=== PATIENT | female | born 1980 | race Caucasian/White ===

== ENCOUNTER 2021-02-01 08:27 | Emergency (ER) | payer OTHER, SELFPAY ==
[2021-02-01 08:38] VITALS: BP 111/56; PULSE 67; RESP 16; TEMP 37; O2SAT 100; BMI 20.1
--- NOTE | 2021-02-01 09:04 | ED_ITS ---
HPI - Back Pain/Injury General Chief Complaint: Back Pain/Injury Stated Complaint: BACK PAIN Time Seen by Provider: 02/01/21 09:03 History of Present Illness HPI Narrative: Patient is a 40-year-old female presents today with having back pain. It radiates down her left leg. It goes down to approximately the mid calf area. No bowel urinary incontinence. No focal weakness. Pain is worse with movement. Patient has some home. 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 Patient denies any trauma to the back. Never had similar pains in the past. No fever no chills. No flank pain no nausea no vomiting. No abdominal pain. Tolerated PO. Try some Aleve with moderate results. No coughing or congestion or upper respiratory symptoms. Related Data Previous Rx's Medication Instructions Recorded cyclobenzaprine 10 mg PO TID PRN 3 Days #14 tab 02/01/21 ibuprofen 400 mg PO Q6H PRN #20 tab 02/01/21 Allergies Allergy/AdvReac Type Severity Reaction Status Date / Time No Known Allergies Allergy Verified 02/01/21 09:08 Review of Systems Review of Systems: Constitutional: No Weight loss, No Fever, No Chills, No Night Sweats, No Fatigue, No Malaise ENT/Mouth: No Hearing loss, No Ear Pain, No Nasal Congestion, No Sinus Pain, No Hoarseness, No sore throat, No Rhinorrhea, No Swallowing Difficulty Eyes: No Eye Pain, No Swelling, No Redness, No Foreign Body, No Discharge, No Vision Changes Cardiovascular: No Chest Pain, No SOB, No Dyspnea on Exertion, No Orthopnea, No Edema, No Palpitations Respiratory: No Cough, No Sputum, No Wheezing, No Smoke Exposure, No Dyspnea Gastrointestinal: No Nausea, No Vomiting, No Diarrhea, No Constipation, No abdominal Pain, No Hematochezia, No Melena. Genitourinary: no irregular bleeding, No Dysuria, No Urinary Frequency, No Hematuria, No Urinary Incontinence, No Urgency, No Flank Pain, No Urinary Flow Changes, No Hesitancy Musculoskeletal: No joint pain, No Myalgias, No Joint Swelling Skin: No Skin Lesions, No rash Neuro: No Weakness, No Numbness, No Paresthesias, No Loss of Consciousness, No Dizziness, No Headache Psych: No Anxiety/Panic, No Depression, No SI/HI/AH/VH, No Social Issues, Heme/Lymph: No Bruising, No Bleeding,No Lymphadenopathy Endocrine: No Polyuria, No Polydipsia, No Temperature Intolerance [facility] Past Medical History Attestation statement: The following information was validated with the patient. Medical History Depression Irritable bowel syndrome (IBS) Surgical History H/O tubal ligation Social History Social History Patient Tobacco Use Status: Never used Tobacco Use of substances other than those prescribed or required for medical reasons: No Advance Directives: No Advance Directives Information Provided: No Patient : No Physical Exam Vital Signs: Vital Signs: Last Vital Signs Temp 98.6 F 02/01/21 08:38 Pulse 67 02/01/21 08:38 Resp 16 02/01/21 08:38 BP 111/56 L 02/01/21 08:38 Pulse Ox 100 02/01/21 08:38 Body Mass Index 20.1 Appearance: Alert. Oriented X3. No acute distress. Eyes: Pupils equal, round and reactive to light. ENT: Pharynx normal. Neck: Normal inspection. Neck supple. No lymph nodes noted. No crepitus CVS: Normal heart rate and rhythm. Pulses normal. Normal S1 and S2 Respiratory: No respiratory distress. Breath sounds normal. No Wheezing. No rales Abdomen: Soft and nontender. No rigidity. No distention. good BS x4 Examination of the back showed paraspinal tenderness on the left side treated there is no spinal tenderness elicited on palpation. There is good sensation bilateral lower extremities. Patient had good pulses in the foot. Pain on movement of the leg. Skin intact. Skin: Skin warm and dry. Normal skin color. Normal skin turgor. Extremities: No lower extremity edema. Neurovascular intact to all extremities. No Lacerations. No Rash Neuro: Oriented X 3. No motor deficit. No sensory deficit. Moving all extermities. No slurred speech MDM - Back Pain/Injury MDM Narrative Medical decision making narrative: No bowel urinary incontinence. No focal weakness. Good sensation both lower extremity. Pulses intact. Pain rating down to the left calf area consistent with having sciatica. Patient has no previous trauma. Has no history of IV drug use. Will discharge patient home with additional NSAIDs and muscle relaxant. Will give 1 dose of oxycodone for pain. In stable condition. Medical Records Attestation: I reviewed the patient's medical records. Lab Data Attestation: I reviewed the patient's lab results. Discharge Plan Discharge Clinical Impression: Sciatica Patient Disposition: Home, Self-Care Instructions: Sciatica (ED) Prescriptions: New ibuprofen 400 mg tablet 400 mg PO Q6H PRN (Reason: pain) Qty: 20 RF: 0 cyclobenzaprine 10 mg tablet 10 mg PO TID PRN (Reason: muscle spasm) 3 Days Qty: 14 RF: 0 Referrals: Luz Diaz MD [Primary Care Provider] - 2 days
== END 2021-02-01 09:49 | disposition home or self-care (01) ==
PROVIDERS: Emergency Provider Emergency Medicine Emergency Medical Services; PCP Internal Medicine
DX: M54.42 Lumbago with sciatica, left side (principal)
CPT/HCPCS: 99283

== ENCOUNTER 2021-03-20 14:00 | Outpatient (RCR) | payer OTHER, SELFPAY ==
--- NOTE | 2021-02-18 16:56 | MHC.PT.EP ---
[facility] [place] Office [place] Office [place] Office [address] [phone] F: [phone] F: [phone] F: [phone] F: [phone] Physical Therapy Plan of Care Date of Evaluation: Date of Surgery: N/A Diagnosis: Low back pain and sciatica Assessment: Pt is a 40yo F who presents with low back pain. Pt presents with current impairments in pain, strength, endurance, sensation, stability, and impaired body mechanics. She has anterior pelvic tilt, increased lordosis, TTP lumbar paraspinals, QL and glutes, and has increased mobility L1-L5. Signs and symptoms may be consistent with muscle imbalance and lumbar instability. She is limited functionally by pain with extension, prolonged supine, prolonged standing, and prolonged sitting. She is an excellent candidate for skilled PT services to improve body mechanics, decrease pain, and increase strength and endurance in order to facilitate return to PLOF. Frequency and Duration: The patient will be seen 2x/week 5 weeks Short Term Goals: Pt will be I with HEP Pt will improve hip extension strength by 1 grade bilaterally Phys Ther Goals: Pt will tolerate standing >30 min with pain <1 to improve function at work Pt will have statistically significant improvement in Modified Oswestry Low Back Pain Disability Questionnaire Treatment Plan: Modalities to reduce pain, spasms and effusion. Manual therapy to restore motion and function. Therapeutic exercise to improve strength and flexibility. Neuromuscular re-education for posture and balance. Therapeutic activities to return to functional activities of daily living. Electronically signed by: Lynsey Koo, PT, DPT Please sign and return to therapist. Thank you for your referral.
== END 2021-04-11 15:45 | disposition home or self-care (01) ==
LOC: HO.PT 14:00
PROVIDERS: PCP Internal Medicine; Visit Provider Nurse Practitioner Family
DX: M54.9 Dorsalgia, unspecified (principal); M54.30 Sciatica, unspecified side
CPT/HCPCS: 97110; 97112; 97140; 97162